=== PATIENT | male | born 1950 | race Caucasian/White ===

== ENCOUNTER 2019-02-14 20:40 | Emergency (ER) | payer MEDICARE, BC ==
--- NOTE | 2019-02-14 20:44 | EDM.PDOC ---
ED HPI GENERAL MEDICAL PROBLEM - General Chief Complaint: Laceration Stated Complaint: laceration to right top of head Time Seen by Provider: 02/14/19 20:40 Source of Information: Reports: Patient, Old Records History Limitations: Reports: No Limitations - History of Present Illness INITIAL COMMENTS - FREE TEXT/NARRATIVE: Patient drove himself to the emergency room via private automobile for evaluation of a minor head contusion resulting in a laceration, which occurred at home at about 19:30 hours. A snow shovel accidentally hit his head with no history of foreign body, loss of consciousness, headache, visual changes, change in mental status, paresthesias, neurological deficits, or other complaints or injuries. He does not know when he received his last tetanus booster. He did clean the wound and apply antibiotic ointment prior to arrival. No other medications taken to this point. The patient denies any chest pain/ pressure, heart flutter, dizziness, orthostasis, orthopnea, diaphoresis, paresthesias, recent decreased exercise tolerance, or any other anginal-type symptoms. No recent history of abdominal pain, heartburn, nausea, diarrhea, melena, gross hematochezia, or any food intolerance, including fatty foods, etc.. The patient also denies any recent fever, cough, wheezing, dyspnea, etc.. Onset: Today, Sudden Onset Date: 02/14/19 Onset Time: 19:30 Duration: Constant Location: Reports: Head. Denies: Neck, Chest, Abdomen, Back, Upper Extremity, Left, Upper Extremity, Right, Radiates to Quality: Reports: Ache Severity: Mild Improves with: Reports: None Worsens with: Reports: None Context: Reports: Trauma (As above) Associated Symptoms: Reports: No Other Symptoms. 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: Other Medication(s), Other (see below) (As above) Right Upper Posterior Head Pain Score (Numeric/FACES): 1 - Related Data Allergies Allergy/AdvReac Type Severity Reaction Status Date / Time No Known Drug Allergies Allergy Other Verified 02/14/19 20:42 Home Meds: Home Meds Ascorbic Acid [Vitamin C] 1,000 mg PO DAILY 05/12/17 [History] Aspirin [Halfprin] 81 mg PO DAILY 05/12/17 [History] Cholecalciferol (Vitamin D3) [Vitamin D3] 1,000 units PO DAILY 05/12/17 [History ] Escitalopram [Lexapro] 20 mg PO DAILY 05/12/17 [History] Multivitamin with Minerals [Multiple Vitamin] 1 tab PO DAILY 05/12/17 [History] [place]-3 Fatty Acids [Maxepa] 1,000 mg PO DAILY 05/12/17 [History] amLODIPine [Norvasc] 10 mg PO DAILY 05/12/17 [History] atorvaSTATin [Lipitor] 20 mg PO BEDTIME 05/12/17 [History] Past Medical History Cardiovascular History: Reports: High Cholesterol, Hypertension, Other (See Below) Other Cardiovascular History: Tachycardia in March 2013 with borderline hyperthyroidism at that time. Gastrointestinal History: Reports: Diverticulosis, Other (See Below) Other Gastrointestinal History: Diverticulosis of the sigmoid colon. Genitourinary History: Reports: BPH, Chronic Renal Insuffiency, Hydronephrosis, Renal Calculus, Other (See Below) Other Genitourinary History: Left-sided urolithiasis with mild to moderate hydronephrosis borderline renal insufficiency on 03/24/13 with spontaneous passage. Benign left renal cyst Musculoskeletal History: Reports: Arthritis, Fracture, Gout, Osteoarthritis Neurological History: Denies: Concussion, Head Trauma Psychiatric History: Reports: Anxiety, Depression Endocrine/Metabolic History: Reports: Hyperthyroidism, Other (See Below) Other Endocrine/Metabolic History: Multiple benign thyroid cyst with borderline hyperthyroidism in March 2013. - Infectious Disease History Infectious Disease History: Reports: Chicken Pox, Measles, Mumps - Past Surgical History GI Surgical History: Reports: Hernia, Abdominal, Hernia, Inguinal, Other (See Below) Other GI Surgeries/Procedures: Ventral hernia repair on 05/25/17. - Past Imaging History Past Imaging History: Reports: CAT Scan (CT scan of the abdomen and pelvis with renal protocol and 03/24/13.), Ultrasound (Thyroid ultrasound on 03/25/13.) Social & Family History - Family History Cardiac: Reports: Hypertension Oncologic: Reports: Bone, Other (See Below) Other Oncologic Family History: kidney - Tobacco Use Smoking Status *Q: Never Smoker Tobacco Use Within Last Twelve Months: No Used Tobacco, but Quit: No Smoking Cessation Information Provided To Patient: No - Caffeine Use Caffeine Use: Reports: Coffee ED ROS GENERAL - Review of Systems Review Of Systems: ROS reveals no pertinent complaints other than HPI. ED EXAM, SKIN/RASH Exam: See Below Exam Limited By: No Limitations General Appearance: Alert, WD/WN, No Apparent Distress Eye Exam: Bilateral Eye: EOMI, Normal Fundi, Normal Inspection, PERRL Ears: Normal External Exam, Normal Canal, Hearing Grossly Normal, Normal TMs Nose: Normal Inspection, Normal Mucosa, No Blood Throat/Mouth: Normal Inspection, Normal Lips, Normal Teeth, Normal Gums, Normal Oropharynx, Normal Voice, No Airway Compromise Head: Other (2 cm in length laceration over the superior posterior right parietal lesion with no foreign body, crepitation, skull deformity, etc.). No: Facial Swelling, Facial Tenderness, Sinus Tenderness Neck: Normal Inspection, Supple, Non-Tender, Full Range of Motion. No: Lymphadenopathy (L), Lymphadenopathy (R), Thyromegaly Respiratory/Chest: No Respiratory Distress, Lungs Clear, Normal Breath Sounds, No Accessory Muscle Use, Chest Non-Tender. No: Pleural Rub, Retractions Cardiovascular: Normal Peripheral Pulses, Regular Rate, Rhythm, No Edema, No Gallop, No JVD, No Murmur, No Rub. No: Gallop/S3, Gallop/S4 Peripheral Pulses: 2+: Radial (L), Radial (R) GI/Abdominal: Normal Bowel Sounds, Soft, Non-Tender, No Organomegaly, No Distention, No Abnormal Bruit, No Mass, Pelvis Stable. No: Guarding (Male) Exam: Deferred Rectal (Males) Exam: Deferred Back Exam: Normal Inspection, Full Range of Motion. No: Muscle Spasm Extremities: Normal Inspection, Normal Range of Motion, Non-Tender, No Pedal Edema, Normal Capillary Refill Neurological: Alert, Oriented, CN II-XII Intact, Normal Cognition, Normal Gait, Normal Reflexes, No Motor/Sensory Deficits Psychiatric: Normal Affect, Normal Mood Skin: Normal Color, No Rash, Wound/Incision (As above). No: Ecchymosis Location, Skin: Head Characteristics: Other (As above) Associated features: Tenderness (Minimal) Lymphatic: No Adenopathy ED SKIN PROCEDURES - Laceration/Wound Repair Right Posterior [place] Head Lac/Wound length In cm: 2.0 Appearance: Subcutaneous, Linear, Clean Distal NVT: Neuro & Vascular Intact, No Tendon Injury Anesthetic Type: Local Local Anesthesia - Lidocaine (Xylocaine): 1% Plain Local Anesthetic Volume: Other (6 mL) Skin Prep: Chlorhexidine (Hibiciens) Exploration/Debridement/Repair: Wound Explored, In a Bloodless Field, Explored to Base, No Foreign Material Found Closed with: [place] # of Sutures: 5 Suture Type: Interrupted, Simple Sterile Dressing Applied: Nurse Tetanus Status Addressed: Yes Complications: No Course - Vital Signs Last Recorded V/S: Last Vital Signs Temp 36.6 C 02/14/19 20:45 Pulse 95 02/14/19 20:45 Resp 19 02/14/19 20:45 BP 150/80 H 02/14/19 20:45 Pulse Ox 96 02/14/19 20:45 Vital Signs - 24 hr 02/14/19 20:45 Temperature [ 36.6 C Tympanic] Pulse, 95 Peripheral [ Left Pulse Oximetry] Respiratory 19 Rate Blood Pressure 150/80 H [Left Upper Arm ] O2 Sat by Pulse 96 Oximetry - Orders/Labs/Meds Orders: Active Orders 24 hr Category Date Time Status Vaccines to be Administered [RC] PER UNIT ROUTINE Care 02/14/19 22:05 Active Obtain Past Medical Record [OM.PC] Routine Oth 02/14/19 20:49 Active Obtain Past Medical Record [OM.PC] Routine Oth 02/14/19 20:50 Active Labs: None Meds: Medications Discontinued Medications Generic Name Dose Route Start Last Admin Trade Name Freq PRN Reason Stop Dose Admin Diphtheria/Tetanus/Acell Pertussis 0.5 ml 02/14/19 22:05 02/14/19 22:12 Adacel IM 02/14/19 22:06 0.5 ml .ONCE ONE Administration Lidocaine HCl 5 ml 02/14/19 20:49 02/14/19 21:42 Xylocaine-Mpf 1% INJECT 02/14/19 20:50 5 ml ONETIME ONE Administration Lidocaine HCl 5 ml 02/14/19 20:50 02/14/19 21:42 Xylocaine-Mpf 1% INJECT 02/14/19 20:51 5 ml ONETIME ONE Administration Neomycin/Polymyxin/Bacitracin 1 each 02/14/19 20:49 02/14/19 21:43 Triple Antibiotic Oint TOP 02/14/19 20:50 1 each ONETIME ONE Administration - Radiology Interpretation Free Text/Narrative:: None Departure - Departure Time of Disposition: 22:28 Disposition: Home, Self-Care 01 Condition: Good Clinical Impression: Laceration, Mixed anxiety depressive disorder, Osteoarthritis Head contusion Qualifiers: Encounter type: initial encounter Contusion of head detail: scalp Qualified Code(s): S00.03XA - Contusion of scalp, initial encounter Hypertension Qualifiers: Hypertension type: essential hypertension Qualified Code(s): I10 - Essential ( primary) hypertension Hyperlipidemia Qualifiers: Hyperlipidemia type: unspecified Qualified Code(s): E78.5 - Hyperlipidemia, unspecified - Discharge Information *PRESCRIPTION DRUG MONITORING PROGRAM REVIEWED*: Not Applicable *COPY OF PRESCRIPTION DRUG MONITORING REPORT IN PATIENT SCOOTER: Not Applicable Instructions: Head Injury, Adult, [id number], Laceration Care, Adult, Easy-to -Read, Stitches, Ken, or Adhesive Wound Closure, [id number] Referrals: PCP,None [Primary Care Provider] - Forms: ED Department Discharge Additional Instructions: 1. Followup with your regular provider in 10-14 days as directed for reevaluation and removal of 5 ken. Bring these discharge instructions with you to that visit. 2. Antibacterial soap wash/soak with subsequent antibacterial dressing such as Neosporin, etc. as directed 2 times per day until the wound or laceration site completely heals. Keep the area clean and dry with activity restrictions as discussed. Never use hydrogen peroxide for wound care. 3. Tylenol 650 mg by mouth every 4 hours and/or OTC ibuprofen 2-3 tabs by mouth every 6 hours with food as directed./needed. You may stagger these medications for 48-72 hours only, which essentially means that you are receiving a pain medication about every 2 hours. 4. Head precautions as directed-see form. 5. Immediately after this visit verify that your cellular telephone's voicemail has been activated and is empty. Also verify that your home telephone 's answering machine is operating properly and has space to receive messages. Note that it is sometimes necessary for us to be able to contact you at a later date to discuss your medical care. 6. Please remember that we are ALWAYS here for you and want to answer any questions you may have. Feel free to call the hospital any time and we call you back YAMINI. - Problem List & Annotations (1) Laceration SNOMED Code(s): 203185647 Code(s): SJK8756 - Status: Acute Priority: High Current Visit: Yes Onset Date: 02/15/19 Annotation/Comment:: Excellent results with laceration repair as above. Wound care instructions provided. (2) Head contusion SNOMED Code(s): 527812418 Code(s): S00.93XA - CONTUSION OF UNSPECIFIED PART OF HEAD, INITIAL ENCOUNTER Status: Acute Priority: Medium Current Visit: Yes Onset Date: 02/14/19 Annotation/Comment:: Minor head contusion with no evidence in concussion. Head precautions given. Qualifiers: Encounter type: initial encounter Contusion of head detail: scalp Qualified Code(s): S00.03XA - Contusion of scalp, initial encounter (3) Hypertension SNOMED Code(s): 15462695 Code(s): I10 - ESSENTIAL (PRIMARY) HYPERTENSION Status: Chronic Priority : Medium Current Visit: Yes Annotation/Comment:: Mildly elevated blood pressure in the emergency room secondary to injury. Continue to observe closely by regular provider. Qualifiers: Hypertension type: essential hypertension (4) Hyperlipidemia SNOMED Code(s): 86240685 Code(s): E78.5 - HYPERLIPIDEMIA, UNSPECIFIED Status: Chronic Priority: Medium Current Visit: Yes Annotation/Comment:: Under therapy Qualifiers: Hyperlipidemia type: unspecified Qualified Code(s): E78.5 - Hyperlipidemia , unspecified (5) Mixed anxiety depressive disorder SNOMED Code(s): 326643931 Code(s): F41.8 - OTHER SPECIFIED ANXIETY DISORDERS Status: Chronic Priority: Medium Current Visit: Yes Annotation/Comment:: Stable by history (6) Osteoarthritis SNOMED Code(s): 871085325 Code(s): M19.90 - UNSPECIFIED OSTEOARTHRITIS, UNSPECIFIED SITE Status: Chronic Priority: Medium Current Visit: Yes Annotation/Comment:: Stable by history with distant history of gout. Qualifiers: Osteoarthritis location: multiple joints Osteoarthritis type: primary Qualified Code(s): M15.0 - Primary generalized (osteo)arthritis - Problem List Review Problem List Initiated/Reviewed/Updated: Yes - My Orders Last 24 Hours: My Active Orders 02/14/19 20:49 Obtain Past Medical Record [OM.PC] Routine 02/14/19 20:50 Obtain Past Medical Record [OM.PC] Routine 02/14/19 22:05 Vaccines to be Administered [RC] PER UNIT ROUTINE - Assessment/Plan Last 24 Hours: My Active Orders 02/14/19 20:49 Obtain Past Medical Record [OM.PC] Routine 02/14/19 20:50 Obtain Past Medical Record [OM.PC] Routine 02/14/19 22:05 Vaccines to be Administered [RC] PER UNIT ROUTINE Assessment:: As above Plan: As above. Extensive precautions were given to the patient, who is in agreement with the treatment plan. See Patient Instructions for further treatment and plan.
[2019-02-14 20:47] VITALS: BP 150/80
[2019-02-14] MEDS ORDERED: Bacitracin/Neomycin/Polymyxin B Oint 0.9 GM U/D Packet TOP ONE (20:49)
[2019-02-14] MEDS ORDERED: Diphtheria,Pertussis(Acell),Tetanus Vaccine 0.5 ML SDV IM ONE (22:05)
== END 2019-02-14 22:28 | disposition home or self-care (01) ==
LOC: LL.ED 20:40
DX: S01.01XA Laceration without foreign body of scalp, initial encounter (principal); F41.8 Other specified anxiety disorders; M19.90 Unspecified osteoarthritis, unspecified site; Z23 Encounter for immunization; I10 Essential (primary) hypertension; E78.00 Pure hypercholesterolemia, unspecified; Z79.82 Long term (current) use of aspirin; Z79.899 Other long term (current) drug therapy; W22.8XXA Striking against or struck by other objects, initial encounter; Y92.009 Unspecified place in unspecified non-institutional (private) residence as the place of occurrence of the external cause
CPT/HCPCS: 12001; 90471; 90715; 99283; J2001